=== PATIENT | male | born 1950 | race Caucasian/White ===

== ENCOUNTER 2018-12-26 14:43 | Emergency (ER) | payer BC, OTHER ==
[2018-12-26 14:59] VITALS: BP 135/87
--- NOTE | 2018-12-26 15:16 | UC ---
Hand/Wrist HPI - HPI Summary HPI Summary: Patient is a 68yo male presenting with left ring finger pain x2 months. Patient states he was hiking when he lost his balance and grabbed onto a thorn apple tree. States several thorns stuck into him fingers and hands but that the ring finger pain has not resolved. Notes decreased ROM of that finger. Notes swelling of finger and pain with palpation. Denies pain at rest. Denies numbness and tingling. He was seen last month by his PCP who said it looked fine and could be deep tissue damage. Patient states he is concerned for retained thorn or possible infection. Denies history of gout or arthritis. - History Of Current Complaint Stated Complaint: LEFT HAND PAIN Hx Obtained From: Patient Severity Currently: Mild Pain Intensity: 2 Pain Scale Used: 0-10 Numeric - Allergies/Home Medications Allergies/Adverse Reactions: Allergies Allergy/AdvReac Type Severity Reaction Status Date / Time Penicillins Allergy Hives Verified 12/26/18 14:59 Home Medications: Home Medications Omeprazole 20 mg PO EVERY OTHER DAY 12/26/18 [History Confirmed 12/26/18] Simvastatin [Zocor 5 MG-] 5 mg PO DAILY 12/26/18 [History Confirmed 12/26/18] PMH/Surg Hx/FS Hx/Imm Hx Previously Healthy: Yes - Surgical History Surgical History: None - Family History Known Family History: Positive: Non-Contributory - Social History Alcohol Use: None Substance Use Type: None Smoking Status (MU): Never Smoked Tobacco Review of Systems All Other Systems Reviewed And Are Negative: Yes Constitutional: Positive: Negative. Negative: Fever Respiratory: Positive: Negative Cardiovascular: Positive: Negative Gastrointestinal: Positive: Negative. Negative: Vomiting, Nausea Neurovascular: Negative: Decreased Sensation Musculoskeletal: Positive: Arthralgia, Decreased ROM, Edema Neurological: Negative: Weakness, Paresthesia, Numbness Physical Exam Triage Information Reviewed: Yes Appearance: Well-Appearing, No Pain Distress, Well-Nourished Vital Signs: Initial Vital Signs Temp 97.6 F 12/26/18 14:53 Pulse 80 12/26/18 14:53 Resp 18 12/26/18 14:53 BP 135/87 12/26/18 14:53 Pulse Ox 95 12/26/18 14:53 Vital Signs Reviewed: Yes Eyes: Positive: Conjunctiva Clear ENT: Positive: Hearing grossly normal Neck: Positive: Supple Respiratory Exam: Normal Respiratory: Positive: Lungs clear, Normal breath sounds, No respiratory distress. Negative: Crackles, Rhonchi, Stridor, Wheezing Cardiovascular Exam: Normal Cardiovascular: Positive: RRR. Negative: Tachycardia Musculoskeletal: Positive: Strength Intact, Strength Limited @ - flexion of left ring finger, Edema @ - mild edema of left middle and ring fingers Neurological: Positive: Alert Psychological: Positive: Age Appropriate Behavior Skin Exam: Normal, Other - no ecchymosis or erythema noted Diagnostics - Radiology left hand xray Radiology Interpretation Completed By: Radiologist Summary of Radiographic Findings: FINDINGS: The bones are normal alignment. There appears be an old healed fracture of the distal fifth metacarpal. No acute fracture is seen. No radiopaque foreign body is noted. There is mild to moderate osteoarthritic change in the proximal distal interphalangeal joints. IMPRESSION: NO EVIDENCE FOR FRACTURE OR REPEAT FOREIGN BODY. Hand/Wrist Course/Dx - Course Course Of Treatment: Discussed osteoarthritic changes and an x-ray with patient that his symptoms could be caused by this. Discussed lack of concern for infection or retained foreign body. She didn't to follow up with PCP if symptoms persist. He may continue to take ibuprofen as directed for pain relief. Told him to return or go to the emergency room if he is unable to move the finger, experiences redness and warmth or experiences severe pain. Patient voiced understanding and agreed to treatment plan. - Differential Dx/Diagnosis Provider Diagnosis: Osteoarthritis Discharge ED - Sign-Out/Discharge Documenting (check all that apply): Patient Departure All imaging exams completed and their final reports reviewed: Yes - Discharge Plan Condition: Stable Disposition: HOME Patient Education Materials: Osteoarthritis (ED) Referrals: Yari Cordero NP [Primary Care Provider] - If Needed Additional Instructions: As discussed, your xray shows signs of arthritis in your finger joints. You may continue to ice and elevate the hand. You may take ibuprofen as directed for pain relief. Follow up with your PCP for further evaluation if symptoms persist. Go to the ED if you experience fsevere pain, fever, chills, nausea, vomiting, or redness and warmth of the area. - Billing Disposition and Condition Condition: STABLE Disposition: Home
== END 2018-12-26 16:07 | disposition home or self-care (01) ==
LOC: UCCORT 14:43
DX: M19.042 Primary osteoarthritis, left hand (principal); Z88.0 Allergy status to penicillin
CPT/HCPCS: 99201; G0463